=== PATIENT | female | born 1960 | race Caucasian/White ===

== ENCOUNTER 2022-01-07 09:45 | Outpatient (RCR) | payer BC, SELFPAY | END 2022-03-15 10:31 | disposition home or self-care (01) | PROVIDERS: PCP Family Medicine; Visit Provider Family Medicine | DX: R10.32 Left lower quadrant pain (principal); M54.2 Cervicalgia; Z51.89 Encounter for other specified aftercare | CPT/HCPCS: 97140; 97162; 97530 ==

== ENCOUNTER 2024-02-06 09:54 | Outpatient (CLI) | payer BC, SELFPAY | END 2024-02-06 09:55 | disposition home or self-care (01) | LOC: INJ CL 09:56 | PROVIDERS: PCP Family Medicine; Visit Provider Family Medicine | DX: M47.816 Spondylosis without myelopathy or radiculopathy, lumbar region (principal) | CPT/HCPCS: 64493; 64494; J0702; Q9966 ==